=== PATIENT | female | born 1970 | race Caucasian/White ===

== ENCOUNTER → 2022-06-28 23:07 | Outpatient (CLI) | payer OTHER, SELFPAY ==
[2022-06-28 18:49] LABS: Erythrocyte Sedimentation Rate 44 mm/hr (0-30)
[2022-06-28 19:25] LABS: C-Reactive Protein 0.8 mg/L (0-4)
[2022-06-28 19:38] LABS: T4 (Thyroxine) 6.8 ug/dl (5.53-11.0)
[2022-06-28 19:51] LABS: Thyroid Stimulating Hormone 1.36 uIU/mL (0.465-4.68)
[2022-06-30 18:07] LABS: Thyroglobulin IMA CHARGE YES; Thyroglobulin Level <1.0 IU/mL (0.0-0.9)
== END ==
PROVIDERS: PCP Family Medicine; Visit Provider Family Medicine
DX: M25.50 Pain in unspecified joint (principal); C80.1 Malignant (primary) neoplasm, unspecified; Z79.899 Other long term (current) drug therapy
CPT/HCPCS: 84436; 84443; 85651; 86140; 86800